=== PATIENT | female | born 1995 | race Caucasian/White ===

== ENCOUNTER 2018-03-08 05:32 | Emergency (ER) | payer OTHER ==
[2018-03-08 06:04] LABS: ADD MAN DIFF? NO
[2018-03-08 06:07] LABS: WHITE BLOOD COUNT 5.7 10^3/ul (4.8-10.8)
[2018-03-08 06:07] LABS: BASOPHILS % 0.5 % (0.0-2.0); EOSINOPHILS # 0.1 10^3/ul (0.0-0.5); EOSINOPHILS % 1.2 % (0.0-7.0); HEMATOCRIT 38.1 % (37.0-47.0); IMMATURE GRANS #M 0.02 10^3/ul; IMMATURE GRANS % (M) 0.3 %; LYMPHOCYTES # 2.4 10^3/ul (0.8-2.9); LYMPHOCYTES % 42.1 % (15.0-51.0); MEAN CORPUSCULAR HEMOGLOBIN 31.3 pg (29.0-33.0); MEAN CORPUSCULAR HGB CONC 34.1 g/dl (32.0-37.0); MEAN CORPUSCULAR VOLUME 91.8 fl (82.0-101.0); MEAN PLATELET VOLUME 10.1 fl (7.4-10.4); MONOCYTE # 0.5 10^3/ul (0.3-0.9); MONOCYTES % 8.2 % (0.0-11.0); NEUTROPHIL # 2.7 10^3/ul (1.6-7.5); NEUTROPHILS % 47.7 % (39.0-77.0); PLATELET COUNT 200 10^3/UL (140-415); RED BLOOD COUNT 4.15 10^6/ul (4.20-5.40)
[2018-03-08 06:20] LABS: ADD UMIC YES; UR ASCORBIC ACID 40 mg/dL (NEGATIVE); UR BACTERIA FEW /HPF (NONE SEEN); UR BILIRUBIN (Dip) NEGATIVE (NEGATIVE); UR BLOOD (Dip) 3+ mg/dL (NEGATIVE); UR CLARITY SLIGHTLY CLOUDY (CLEAR); UR COLOR YELLOW (YELLOW); UR GLUCOSE (Dip) NEGATIVE (NEGATIVE); UR KETONES (Dip) NEGATIVE (NEGATIVE); UR LEUKOCYTE ESTERASE (Dip) 2+ Leu/ul (NEGATIVE); UR MUCUS FEW /HPF (NONE SEEN); UR NITRITE (Dip) NEGATIVE (NEGATIVE); UR RBC 1 /HPF (0-5); UR SPECIFIC GRAVITY (Dip) 1.024 (1.003-1.030); UR SQUAMOUS EPITHELIAL CELL FEW /HPF (FEW); UR TOTAL PROTEIN (Dip) NEGATIVE (NEGATIVE); UR UROBILINOGEN (Dip) NEGATIVE (NEGATIVE); UR WBC 10 /HPF (0-5)
== END 2018-03-08 08:24 | disposition home or self-care (01) ==
LOC: FTE 05:32
DX: O20.9 Hemorrhage in early pregnancy, unspecified (principal); R10.2 Pelvic and perineal pain; Z3A.10 10 weeks gestation of pregnancy
CPT/HCPCS: 36415; 76801; 76817; 81001; 84702; 85025; 86900; 86901; 99284-25

== ENCOUNTER 2018-03-18 00:58 | Emergency (ER) | payer OTHER ==
[2018-03-18 03:04] LABS: ADD MAN DIFF? NO
[2018-03-18 03:06] LABS: BASOPHILS % 0.3 % (0.0-2.0); EOSINOPHILS % 0.3 % (0.0-7.0); HEMATOCRIT 37.5 % (37.0-47.0); HEMOGLOBIN 12.6 g/dl (12.0-16.0); LYMPHOCYTES # 1.3 10^3/ul (0.8-2.9); LYMPHOCYTES % 12.3 % (15.0-51.0); MEAN CORPUSCULAR HEMOGLOBIN 31.2 pg (29.0-33.0); MEAN CORPUSCULAR HGB CONC 33.6 g/dl (32.0-37.0); MEAN CORPUSCULAR VOLUME 92.8 fl (82.0-101.0); MEAN PLATELET VOLUME 10.4 fl (7.4-10.4); MONOCYTE # 0.7 10^3/ul (0.3-0.9); MONOCYTES % 6.1 % (0.0-11.0); NEUTROPHIL # 8.7 10^3/ul (1.6-7.5); NEUTROPHILS % 80.6 % (39.0-77.0); PLATELET COUNT 191 10^3/UL (140-415); RED BLOOD COUNT 4.04 10^6/ul (4.20-5.40); RED CELL DISTRIBUTION WIDTH 13.1 % (11.5-14.5)
[2018-03-18 03:06] LABS: WHITE BLOOD COUNT 10.7 10^3/ul (4.8-10.8)
== END 2018-03-18 04:27 | disposition home or self-care (01) ==
LOC: FTE 04:27
DX: O02.1 Missed abortion (principal)
CPT/HCPCS: 36415; 76830; 76856; 81025; 85025; 99284-25

== ENCOUNTER 2018-03-18 11:38 | Day surgery (SDC) | payer OTHER ==
[~2018-03-18 11:38] MED LIST: CEFAZOLIN 1 GM INJ
[2018-03-18] MEDS ORDERED: ROCURONIUM 50 MG INJ (12:33)
[2018-03-18] MEDS ORDERED: NEOSTIGMINE 3 MG/3 ML SYRINGE (12:33)
[2018-03-18] MEDS ORDERED: PROPOFOL 20 ML (12:33)
[2018-03-18] MEDS ORDERED: MIDAZOLAM 1 MG/ML 2 ML INJ (12:33)
[2018-03-18] MEDS ORDERED: FENTAnyl 50 MCG/ML VIAL (12:33)
[2018-03-18] MEDS ORDERED: LIDOCAINE 2% (SDV) 5 ML INJ (12:33)
[2018-03-18] MEDS ORDERED: GLYCOPYRROLATE 0.4 MG INJ (12:33)
[2018-03-18] MEDS ORDERED: ONDANSETRON 4 MG INJ (12:34)
[2018-03-18] MEDS ORDERED: DEXAMETHASONE 4 MG/ML 1 ML INJ (12:34)
[2018-03-18] MEDS ORDERED: OXYCODONE/ACETAMINOPHEN (5/325) TAB PO ×2 (16:30)
[2018-03-18] MEDS ORDERED: FENTAnyl 50 MCG/ML VIAL IV (16:30)
[2018-03-18] MEDS ORDERED: DIPHENHYDRAMINE 50 MG INJ IV (16:30)
[2018-03-18] MEDS ORDERED: morphine (1 MG/ML) 10ML SYRINGE IV ×3 (16:30)
[2018-03-18] MEDS ORDERED: ATROPINE 1 MG/10 ML SYRINGE IV (16:30)
[2018-03-18] MEDS ORDERED: HYDROmorphONE 1 MG/5 ML IV SYRINGE IV ×3 (16:30)
[2018-03-18] MEDS ORDERED: MIDAZOLAM 1 MG/ML 2 ML INJ IV (16:30)
[2018-03-18] MEDS ORDERED: hydrALAzine 20 MG INJ IV (16:30)
[2018-03-18] MEDS ORDERED: EPHEDrine SULFATE 50 MG/5 ML SYG IV (16:30)
[2018-03-18] MEDS ORDERED: LABETALOL HCL 20MG INJ IV (16:30)
[2018-03-18] MEDS ORDERED: ONDANSETRON 4 MG INJ IV (16:30)
[2018-03-18] MEDS ORDERED: MEPERIDINE 25 MG INJ IV (16:30)
[2018-03-18] MEDS ORDERED: OXYTOCIN 10 UNIT INJ (16:39)
[2018-03-18] MEDS ORDERED: ACETAMINOPHEN 325 MG TAB PO (17:00)
[2018-03-18] MEDS: FENTAnyl 50 MCG/ML VIAL IV (17:18)
== END 2018-03-18 18:42 | disposition home or self-care (01) ==
LOC: SDS 11:38
DX: O02.1 Missed abortion (principal); Z3A.08 8 weeks gestation of pregnancy
CPT/HCPCS: 59820; 84703; 86850; 86900; 86901; 88305